=== PATIENT | female | born 1975 | race African-American/Black ===

== ENCOUNTER 2016-10-29 14:52 | Emergency (ER) | payer OTHER ==
--- NOTE | ~2016-10-29 | CR106 ---
[facility] A Service of [facility] & [facility] RADIOLOGY TEXT RESULTS PATIENT: SANAM CHINO LOCATION: CFTX : [birth year] UNIT #: [id number] AGE: [address]: Kesha Moreno APRN SEX: F ORDER DR: [id number] [facility] [address] [place], [place] [address] [id number] E MR#: [id number] Acc #: [id number] NAME: SANAM CHINO : 1975 SEX: F STUDY DATE/TIME: 10/29/2016 14:57 UNIT: [facility] ROOM: STUDY DESCRIPTION: CR Femur 2 Views Lt Attending Physician: Kesha Moreno A.P.R.N. Referring Physician: Cr Olsen M.D. Ordering Physician: Ed Erick Wharton M.D. Primary Care Physician: Hernan Loaiza M.D. MEDICAL IMAGING REPORT This report is preliminary unless electronic signature is present EXAM Left femur, 2 views. DATE OF EXAM 10/29/2016 INDICATIONS 40-year female with left thigh pain for 1 month. COMPARISON No comparisons. FINDINGS There is no fracture or malalignment. The soft tissue structures are unremarkable. IMPRESSION Negative. Dictated by... Jayson Carrasquillo M.D. THIS IS AN ELECTRONICALLY VERIFIED REPORT Jayson Carrasquillo M.D. at 11/01/2016 8:32 AM REDDY/reji TD: 10/29/2016 22:59 JOB #: [id number] MEDICAL IMAGING REPORT COPY
--- NOTE | ~2016-10-29 | US85 ---
[facility] A Service of [facility] & [facility] RADIOLOGY TEXT RESULTS PATIENT: SANAM CHINO LOCATION: CFTX : 73 UNIT #: [id number] AGE: [address]: Kesha Moreno APRN SEX: F ORDER DR: [id number] [facility] [address] [place], [place] [address] [id number] E MR#: [id number] Acc #: [id number] NAME: SANAM CHINO : 1975 SEX: F STUDY DATE/TIME: 10/29/2016 15:19 UNIT: [facility]FTX ROOM: STUDY DESCRIPTION: [facility] Attending Physician: Kesha Moreno A.P.R.N. Ordering Physician: Ed Erick Wharton M.D. Primary Care Physician: Hernan Loaiza M.D. MEDICAL IMAGING REPORT This report is preliminary unless electronic signature is present EXAM Color Doppler ultrasound examination of the left lower extremity HISTORY Left leg pain for the past month worse today. TECHNIQUE Ultrasound evaluation was performed with blackburn-scale color-flow and Doppler spectral waveform analysis. FINDINGS The examination is negative. There is no evidence of left lower extremity deep venous thrombus from the groin to the lower calf. Visualized greater saphenous vein is also patent. IMPRESSION Negative examination. No evidence of left lower extremity deep venous thrombosis. Dictated by... Kieran Maynard M.D. THIS IS AN ELECTRONICALLY VERIFIED REPORT Kieran Maynard M.D. at 10/31/2016 9:39 PM KODAK/дмитрий TD: 10/29/2016 22:50 JOB #: [id number] MEDICAL IMAGING REPORT COPY
--- NOTE | ~2016-10-29 | CR150 ---
[facility] A Service of [facility] & [facility] RADIOLOGY TEXT RESULTS PATIENT: SANAM CHINO LOCATION: CFTX : 73 UNIT #: [id number] AGE: [address]: Kesha Moreno APRN SEX: F ORDER DR: [id number] [facility] [address] [place], [place] [address] [id number] E MR#: [id number] Acc #: [id number] NAME: SANAM CHINO : 1975 SEX: F STUDY DATE/TIME: 10/29/2016 14:57 UNIT: [facility] ROOM: STUDY DESCRIPTION: CR Hip Min 2 Views Lt Attending Physician: Kesha Moreno A.P.R.N. Ordering Physician: Ed Erick Wharton M.D. Primary Care Physician: Hernan Loaiza M.D. MEDICAL IMAGING REPORT This report is preliminary unless electronic signature is present EXAM Left hip 2 views INDICATIONS 40-year-old female with left hip pain for 1 month. No comparisons. FINDINGS There is no significant joint space narrowing. There is no fracture or dislocation. IMPRESSION No fracture or dislocation Dictated by... Jayson Carrasquillo M.D. THIS IS AN ELECTRONICALLY VERIFIED REPORT Jayson Carrasquillo M.D. at 11/01/2016 8:32 AM REDDY/дмитрий TD: 10/29/2016 22:28 JOB #: [id number] MEDICAL IMAGING REPORT COPY
[~2016-10-29 14:52] MED LIST: FLEXERIL PO; HYDROXYZINE HCL50 MG PO; IBUPROFEN800 MG PO; KETOPROFEN PO; PHENERGAN25 MG PO
== END 2016-10-29 16:20 | disposition home or self-care (01) ==
LOC: CFTX 14:52
DX: M79.605 Pain in left leg (principal); I10 Essential (primary) hypertension; Z98.890 Other specified postprocedural states
CPT/HCPCS: 73502; 73552; 93971; 99284

== ENCOUNTER 2017-02-08 15:17 | Emergency (ER) | payer OTHER ==
[2017-02-08 16:33] LABS: URINE SOURCE CLEAN CATCH
[2017-02-08 16:40] LABS: URINE APPEARANCE CLEAR; URINE BILIRUBIN NEG (NEG); URINE BLOOD NEG (NEG); URINE COLOR YELLOW; URINE GLUCOSE NEG (NEG); URINE KETONE NEG (NEG); URINE LEUKOCYTE ESTERASE NEG (NEG); URINE NITRATE NEG (NEG); URINE PH 6.5 (5-8); URINE PROTEIN NEG (NEG); URINE SPECIFIC GRAVITY 1.022 (1.003-1.035); URINE UROBILINOGEN 0.2 MG/DL (NEG)
[2017-02-08 16:45] LABS: CULTURE INDICATED? NO
[2017-02-10 20:41] LABS: CHLAMYDIA TRACH Not Detected (Not Detected); N GONOR Not Detected (Not Detected)
== END 2017-02-08 17:34 | disposition home or self-care (01) ==
LOC: CED 15:17 → CFTX 15:17
PROVIDERS: Nurse Practitioner
DX: N89.8 Other specified noninflammatory disorders of vagina (principal); L30.9 Dermatitis, unspecified; I10 Essential (primary) hypertension; F17.200 Nicotine dependence, unspecified, uncomplicated
CPT/HCPCS: 81003; 84703; 87210; 87491; 87591; 87808; 87905; 99283